=== PATIENT | male | born 1965 | race Caucasian/White ===

== ENCOUNTER → 2016-12-23 | Outpatient (CLI) | payer BC ==
[2016-12-23 08:29] LABS: Blood Urea Nitrogen 19 mg/dL (9-20); Non-African American GFR(MDRD) >60 (>60 ml/min/1.73 sqM)
--- NOTE | 2016-12-23 09:54 | CT ---
EXAMINATION TYPE: CT abdomen pelvis w con DATE OF EXAM: 12/23/2016 9:23 AM COMPARISON: 02/01/2016 HISTORY: 51-year-old male with RLQ pain. Patient with a history of rectal cancer. TECHNIQUE: Contiguous axial scanning of the abdomen and pelvis following administration of 100 ml Omn ipaque 300 IV contrast. Delayed images through the kidneys and coronal/sagittal reconstructions perf ormed. CT DLP: 1596.5 mGycm Automated exposure control for dose reduction was used. FINDINGS: Heart is normal size without pericardial effusion. Lung bases clear without pleural effusion. Small hiatal hernia. Stable 1.8 cm hypodense lesion left hepatic lobe with nodular peripheral enhancement along the superi or margin, likely hemangioma. There is some new hypodensity along the gallbladder fossa probably representing focal fat, axial imag e 27. This area measures up to 2 cm and remains relatively hypodense on delayed kidney images. Portal venous system is patent. No biliary ductal dilatation. Adrenal glands, left kidney, spleen with tiny posterior splenules, and pancreas show no gross abnorma l body. There is mild right-sided pelvicaliectasis and symmetric excretion of contrast by both kidneys regard less of a 6 mm calculus in the upper right ureter. There are a couple stable small omental fat-containing supraumbilical ventral abdominal wall hernias, axial image 44 and 48. Stranding within the subcutaneous fat of the right lower quadrant relating to scarring from the patie nt's previous ostomy. No dilated small bowel, free fluid, or free air. Normal appendix. A few prominent mesenteric lymph nodes measure up to 7 mm and are unchanged. Otherwise, no mesenteric or retroperitoneal lymphadenopathy. Oral contrast progressed to the hepatic flexure. There is moderate stool burden without pericolonic i nflammatory change. Bowel anastomotic staple line at the rectosigmoid junction additional surgical ma terial at the right lower quadrant. Bladder is urine distended. No abnormal fluid collection in the pelvis or pelvic lymphadenopathy seen . Bones: No osseous destructive process. IMPRESSION: 1. A 6 MM CALCULUS IN THE UPPER THIRD RIGHT URETER CAUSING MILD PELVICALIECTASIS BUT WITHOUT SIGNIFIC ANT URINARY OBSTRUCTION. 2. A NEW 2 CM AREA OF HYPODENSITY IN THE LIVER ALONG THE GALLBLADDER FOSSA SUSPECTED TO REPRESENT FOC AL FAT. A SHORT INTERVAL FOLLOW-UP IS RECOMMENDED GIVEN THE PATIENT'S HISTORY OF COLON CANCER. 3. A COUPLE STABLE SMALL SUPRAUMBILICAL VENTRAL ABDOMINAL WALL HERNIAS CONTAINING OMENTAL FAT.
== END | disposition home or self-care (01) ==
LOC: RADCTMAIN 07:35
PROVIDERS: ATTEND Surgery
DX: N20.1 Calculus of ureter (principal); K43.9 Ventral hernia without obstruction or gangrene
CPT/HCPCS: 82565; 84520; 74177; 36415; Q9967

== ENCOUNTER → 2016-12-28 | Outpatient (CLI) | payer BC ==
--- NOTE | 2016-12-28 15:37 | XR ---
EXAMINATION TYPE: XR KUB DATE OF EXAM: 12/28/2016 3:31 PM COMPARISON: CT 12/23/2016 HISTORY: Follow-up right-sided stone TECHNIQUE: One view abdominal series FINDINGS: Extensive retained fecal debris obscures the right renal outline. No suspicious calculi overlying the left kidney. Hypertrophic changes are seen with degenerative change of the spine. Adjacent to the L4-L5 disc space on the right there is a 5 mm calcification which could be in the cou rse of the right ureter. Arthropathy of the hips noted. Surgical clips and postsurgical changes noted. IMPRESSION: 1. There is a 5 to 6 mm right ureteral calculus which may have migrated a couple centimeters and now appears to be adjacent to the L4-5 disc interspace.
== END | disposition home or self-care (01) ==
LOC: RADXRMAIN 15:19
PROVIDERS: ATTEND Urology
DX: N20.1 Calculus of ureter (principal)
CPT/HCPCS: 74000

== ENCOUNTER 2017-01-16 10:03 | Day surgery (SDC) | payer BC ==
[2017-01-11 18:10] VITALS: BMI 32.5
[~2017-01-16 10:03] MED LIST: Pre Op ABX Message 1 EACH MISC MISCELLANE ONE
--- NOTE | 2017-01-16 10:18 | XR ---
Abdomen HISTORY: Prelithotripsy, ureteral calculus Frontal view of the abdomen on 2 images, Correlated prior exam one December 2016, CT 23 December 2016 The calculus seen on previous exam is not as well seen but is thought likely to be progressed somewha t within the ureter perhaps overlying the right sacrum. Retained fecal debris, bowel gas may obscure underlying detail. Lung bases are clear. Postop changes are again seen. IMPRESSION: Interval migration is suspected
[2017-01-16 12:16] VITALS: TEMP 97.8
[2017-01-16] MEDS ORDERED: LIDOCAINE 1% 20 ML VIAL (10MG/ML) FOR IV START INTRADERMA ONE (12:31)
[2017-01-16] MEDS ORDERED: LACTATED RINGERS 1,000 ML IV ONE (12:32)
[2017-01-16] MEDS ORDERED: PROPOFOL 10 MG/ML 20 ML VIAL IV ONE (12:37)
[2017-01-16] MEDS ORDERED: fentaNYL (PF) 50 MCG/ML 2 ML AMP ONE (12:37)
[2017-01-16] MEDS ORDERED: MIDAZOLAM 2 MG/2 ML VIAL ONE (12:37)
[2017-01-16] MEDS ORDERED: LIDOCAINE 1% INJ 10MG/ML (20 ML MDV) ONE (12:37)
[2017-01-16 12:48] LABS: Glucose,Whole Blood 190 mg/dL (75-99)
--- NOTE | 2017-01-16 13:08 | P.OP ---
Date of Procedure: 01/16/17 Preoperative Diagnosis: Right ureteral stone Postoperative Diagnosis: Same Procedure(s) Performed: ESWL right 2000 shocks at energy level Anesthesia: MAC Surgeon: Samy Reyes Pathology: none sent Condition: stable Disposition: PACU Indications for Procedure: The patient is a 51-year-old gentleman with a 5 mm distal ureteral stone and comes for shockwave Description of Procedure: Patient brought to the operating suite and given IV sedation on the table. The stone was seen in 2 views of fluoroscopy just distal to the SI joint. 2000 shocks at energy level administered to fracture the stone. Patient's awake and returned recovery room good condition. He'll be discharged home upon recovery.
[2017-01-16 13:28] LABS: Glucose,Whole Blood 161 mg/dL (75-99)
[2017-01-16] MEDS ORDERED: HYDROcodone/APAP 5-325MG 1 EACH TAB PO ONE (13:33)
[2017-01-16 13:41] VITALS: RESP 18
[2017-01-16 13:56] VITALS: BP 133/88; PULSE 84
== END 2017-01-16 14:10 | disposition home or self-care (01) ==
LOC: ORWHC2ENDO 10:03
PROVIDERS: ATTEND Urology
DX: N20.1 Calculus of ureter (principal); E11.9 Type 2 diabetes mellitus without complications; Z79.4 Long term (current) use of insulin; Z79.84 Long term (current) use of oral hypoglycemic drugs; I10 Essential (primary) hypertension; E78.5 Hyperlipidemia, unspecified; Z85.048 Personal history of other malignant neoplasm of rectum, rectosigmoid junction, and anus; Z79.891 Long term (current) use of opiate analgesic; Z79.899 Other long term (current) drug therapy; Z88.1 Allergy status to other antibiotic agents
CPT/HCPCS: 74000; 50590; J2250; J2001; J3010; J2704

== ENCOUNTER → 2017-01-18 | Outpatient (CLI) | payer BC ==
--- NOTE | 2017-01-19 11:42 | XR ---
Abdomen HISTORY: Status post lithotripsy Frontal view of the abdomen on 2 images correlated to prior dated December Postop changes are again seen. Calcifications within the pelvis not significantly changed in the inte rval. Overlying bowel gas may obscure detail. No obstruction or pneumoperitoneum. Previously identifi ed calcification is not as well seen but may persist over the right sacrum. IMPRESSION: Previously identified pelvic calcification is not as well seen but may be present over th e right sacrum as on prior.
== END ==
LOC: RADXRMAIN 15:54
PROVIDERS: ATTEND Urology
DX: N20.1 Calculus of ureter (principal)
CPT/HCPCS: 74000

== ENCOUNTER 2017-03-24 06:42 | Day surgery (SDC) | payer BC ==
[2017-03-22 09:35] VITALS: BMI 32.8
[~2017-03-24 06:42] MED LIST changes: +LACTATED RINGERS 1,000 ML IV SCH; -Pre Op ABX Message 1 EACH MISC MISCELLANE ONE
[2017-03-24 07:13] VITALS: TEMP 97.2
[2017-03-24 07:19] LABS: Glucose,Whole Blood 134 mg/dL (75-99)
[2017-03-24] MEDS ORDERED: PROPOFOL 10 MG/ML 20 ML VIAL IV ONE (07:54)
[2017-03-24] MEDS ORDERED: LIDOCAINE 1% INJ 10MG/ML (20 ML MDV) ONE (07:54)
--- NOTE | 2017-03-24 08:00 | P.GSHP ---
History of Present Illness H&P Date: 03/24/17 Chief Complaint: Rectal cancer Patient here today for follow-up colonoscopy. He has a personal history of rectal cancer. Recently has had some right lower quadrant abdominal pain but no bowel related complaints. He has a history of an incisional hernia repair following a ileostomy reversal. His initial diagnosis was in 2012 Past Medical History Past Medical History: Cancer, Diabetes Mellitus, Deep Vein Thrombosis (DVT), GI Bleed, Hyperlipidemia, Hypertension Additional Past Medical History / Comment(s): 06/10/15 ADM W/ Rectal Bleeding, 12 days Post Polypectomy. HX RECTAL CA W/ ILEOSTOMY, THEN REVERSAL 05/2014. SEVERE JOSE LEG DVT 02/2014. INCISIONAL HERNIA CURRENT. HX KIDNEY STONES, RT URETER History of Any Multi-Drug Resistant Organisms: None Reported Past Surgical History: Bowel Resection, Hernia Repair, Orthopedic Surgery Additional Past Surgical History / Comment(s): ILEOSTOMY 12/2013/REVERSED 2013. Thrombectomy W/ Clot EXC JOSE LEGS 02/2014; KIDNEY STONE SX. 10/31 RT GREAT TOE AMPUTATED 05/2014. EGD, COLONSCOPY, POLYPECTOMY 05/29/15,INCISIONAL HERNIA REPAIR Past Anesthesia/Blood Transfusion Reactions: No Reported Reaction Additional Past Anesthesia/Blood Transfusion Reaction / Comment(s): STATES REACTION TO PRE-OP SCRUB SOAP USED AT OTHER HOSPITAL, NO REACTION SINCE,NO HX BLOOD TRANSFUSION Past Psychological History: No Psychological Hx Reported Additional Psychological History / Comment(s): pt lives at home with his , is independant and works as merchandise flow team member for [employer]. Smoking Status: Former smoker Past Alcohol Use History: None Reported Additional Past Alcohol Use History / Comment(s): Smoked 32 years, < 1 PPD, Quit 10/2013 Past Drug Use History: None Reported - Past Family History Mother Family Medical History: Cancer Sister(s) Family Medical History: Cancer Medications and Allergies Home Medications Medication Instructions Recorded Confirmed Type INSULIN LISPRO (humaLOG) [humaLOG 1 - 3 units SQ AC-TID PRN 05/22/14 03/24/17 History (formulary)] Cholecalciferol [Vitamin D3] 2,000 unit PO DAILY 05/26/15 03/24/17 History Insulin Glargine [Lantus] 50 unit SQ HS 05/26/15 03/24/17 History Celecoxib [CeleBREX] 200 mg PO BID PRN 01/11/17 03/24/17 History Allergies Allergy/AdvReac Type Severity Reaction Status Date / Time rivaroxaban [From Xarelto] AdvReac GI BLEEDING Verified 03/22/17 09:24 SCENTS AdvReac RASH, Uncoded 03/22/17 09:24 SWELLING Surgical - Exam Vital Signs Temp Pulse Resp BP Pulse Ox 97.2 F L 86 20 152/90 98 03/24/17 07:12 03/24/17 07:12 03/24/17 07:12 03/24/17 07:12 03/24/17 07:12 Physical exam: General: Well-developed, well-nourished HEENT: Normocephalic, sclerae nonicteric Abdomen: Nontender, nondistended Extremities: No edema Neuro: Alert and oriented Results - Labs Abnormal Lab Results - Last 24 Hours (Table) 03/24/17 Range/Units 07:16 POC Glucose (mg/dL) 134 H (75-99) mg/dL Assessment and Plan (1) Rectal cancer Narrative/Plan: Will proceed with colonoscopy at this time risks of bleeding, infection, perforation were discussed. He understands and wishes to proceed. Status: Acute
--- NOTE | 2017-03-24 08:11 | P.PCN ---
Date of Procedure: 03/24/17 Preoperative Diagnosis: Postoperative Diagnosis: Procedure(s) Performed: PREOPERATIVE DIAGNOSIS: History of rectal cancer POSTOPERATIVE DIAGNOSIS: Normal exam PROCEDURE: Colonoscopy ANESTHESIA: MAC SURGEON: Narayan Mohr M.D. SPECIMENS: None ENDOSCOPIC PROCEDURE: The patient was placed on the endoscopy table in the left decubitus position. The Olympus colonoscope was inserted into the anus and passed under direct visualization to the base of the cecum. The appendiceal orifice was visualized. From that point the scope was slowly withdrawn inspecting all surfaces carefully. There were no neoplastic inflammatory or polypoid lesions throughout the cecum, ascending, transverse, descending and distal rectum. The anastomosis was patent. This was present at about 6-7 cm. There is no visible diverticulosis. Digital rectal examination was normal. The patient was taken to the recovery room in stable condition per anesthesia guidelines. RECOMMENDATIONS: Increase fiber. Follow-up colonoscopy in 3 years. Implants: Indications for Procedure: Operative Findings: Description of Procedure:
[2017-03-24 08:30] VITALS: BP 146/80; PULSE 76; RESP 16
[2017-03-24 08:30] LABS: Glucose,Whole Blood 133 mg/dL (75-99)
== END 2017-03-24 08:45 | disposition home or self-care (01) ==
LOC: ORWHC2ENDO 06:42
PROVIDERS: ATTEND Surgery
DX: R10.31 Right lower quadrant pain (principal); Z85.048 Personal history of other malignant neoplasm of rectum, rectosigmoid junction, and anus; Z98.0 Intestinal bypass and anastomosis status; E11.9 Type 2 diabetes mellitus without complications; Z79.4 Long term (current) use of insulin; Z79.84 Long term (current) use of oral hypoglycemic drugs; I10 Essential (primary) hypertension; Z87.891 Personal history of nicotine dependence; Z86.718 Personal history of other venous thrombosis and embolism; Z79.82 Long term (current) use of aspirin; Z79.899 Other long term (current) drug therapy; Z88.8 Allergy status to other drugs, medicaments and biological substances
CPT/HCPCS: 45378; J2001; J2704

== ENCOUNTER → 2018-04-02 | Outpatient (CLI) | payer BC ==
[2018-04-02 08:06] LABS: Blood Urea Nitrogen 22 mg/dL (9-20)
--- NOTE | 2018-04-02 09:44 | CT ---
EXAMINATION TYPE: CT ChestAbdPelvis w con DATE OF EXAM: 04/02/2018 COMPARISON: December 23, 2016 CT abdomen pelvis as well as CT chest abdomen pelvis 02/01/2016 HISTORY: Rectal cancer CT DLP: 2255 mGycm CONTRAST: CT scan of the chest, abdomen and pelvis is performed with Oral Contrast and with IV Contrast, patien t injected with 100 ml mL of Isovue 300. CT Chest: LUNGS: New nodular density right upper lobe anteriorly measuring 1.0 x 0.7 cm. No additional pulmonar y nodules identified. No evidence for infiltrate. No pleural effusion or volume loss. MEDIASTINUM: Thoracic aorta is of normal caliber. The heart is not enlarged. High right paratrache al lymph node measuring 1.1 cm unchanged from prior study. Additional subcentimeter mediastinal lymph nodes are stable. HILAR STRUCTURES: No evidence for mass. No hilar adenopathy is appreciated. OTHER: Subcentimeter axillary lymph nodes identified. CONTRAST CT ABDOMEN AND PELVIS FINDINGS: LIVER/GB: No calcified gallstones. Stable hypodense lesion measuring 1.9 cm left hepatic lobe later al segment. No additional hepatic lesions seen. Biliary tree is of normal caliber. PANCREAS: No inflammation. No distinct mass. SPLEEN: No splenic enlargement. No lesion seen. ADRENALS: Left adrenal nodule is stable at 1 cm. No thickening. KIDNEYS/BLADDER: No hydronephrosis. No nephrolithiasis. No disctinct renal mass. BOWEL: Postsurgical changes rectosigmoid region. Normal appendix. Normal bowel caliber. No inflamma tion. GENITAL ORGANS: No gross abnormality. LYMPH NODES: No greater than 1cm abdominal or pelvic lymph nodes are appreciated. AORTA: No significant abnormality. OSSEOUS STRUCTURES: No significant abnormality is seen. OTHER: No significant additional abnormality is seen. IMPRESSION: 1. New nodular density right upper lobe. Metastatic disease or primary neoplasm not excluded. Conside r PET CT evaluation. 2. Stable lesion within the left hepatic lobe lateral segment may reflect hemangioma versus focal fat . Lesion of other etiology is not excluded. Continued follow-up advised. 3. No evidence for local recurrence. Rectosigmoid postoperative changes seen.
== END | disposition home or self-care (01) ==
LOC: RADCTMAIN 07:24
PROVIDERS: ATTEND Internal Medicine Hematology & Oncology
DX: C20 Malignant neoplasm of rectum (principal); R91.1 Solitary pulmonary nodule; K76.9 Liver disease, unspecified
CPT/HCPCS: 82565; 84520; 71260; 74177; 36415; Q9967

== ENCOUNTER → 2018-08-10 | Outpatient (CLI) | payer BC ==
--- NOTE | 2018-08-10 10:20 | XR ---
EXAMINATION TYPE: XR shoulder complete LT DATE OF EXAM: 08/10/2018 COMPARISON: NONE HISTORY: Pain TECHNIQUE: Three views are submitted. FINDINGS: The osseous structures are intact. There is no acute fracture or dislocation. The AC joint is maint ained. IMPRESSION: 1. No acute process.
== END | disposition home or self-care (01) ==
LOC: RADXRMAIN 09:58
PROVIDERS: ATTEND Family Medicine
DX: M24.812 Other specific joint derangements of left shoulder, not elsewhere classified (principal)

== ENCOUNTER → 2018-08-27 | Outpatient (CLI) | payer BC ==
--- NOTE | 2018-08-27 10:54 | ECHOS ---
STRESS ECHOCARDIOGRAM INDICATIONS: Chest pain. MEDICATIONS: Humalog, Lantus, losartan, atorvastatin, glimepiride, aspirin, metformin. BASELINE HEART RATE: 86 BASELINE BLOOD PRESSURE: 157/69 MAXIMUM HEART RATE: 153 MAXIMUM BLOOD PRESSURE: 210/70 85% MPHR: 142 100% MPHR: 167 METS: 6.4 MAXIMUM STAGE REACHED: 2 TOTAL EXERCISE TIME: 4:30 CLINICAL INFORMATION: Baseline EKG shows sinus rhythm, normal axis, normal intervals. Patient exercised on Johny protocol for a total of 4.5 minutes achieving 6 METs, 91% of predicted maximal heart rate without chest pain or diagnostic ST-segment depression. Baseline echo shows normal left ventricular size, hypokinesis involving basal inferior wall with normal LV function with an ejection fraction of 50%. Postexercise there is normal hyperdynamic response involving the anterior wall, septum and the lateral wall. Basal inferior wall remains hypokinetic. CONCLUSION: 1. Poor exercise tolerance. 2. Negative stress test by EKG criteria. 3. Abnormal stress echo showing evidence of prior inferior wall myocardial infarction with preserved LV function without any ischemia. MMODL / IJN: [id number] /
== END | disposition home or self-care (01) ==
LOC: RADNMMAIN 08:54
PROVIDERS: ATTEND Family Medicine
DX: I25.2 Old myocardial infarction (principal); I10 Essential (primary) hypertension
CPT/HCPCS: 93306; 93351

== ENCOUNTER → 2018-09-04 | Outpatient (CLI) | payer BC | END | disposition home or self-care (01) | LOC: RADMRIMAIN 07:04 | PROVIDERS: ATTEND Family Medicine | DX: Z53.9 Procedure and treatment not carried out, unspecified reason (principal) ==

== ENCOUNTER → 2018-10-01 | Outpatient (CLI) | payer BC ==
[2018-10-01 08:16] LABS: Blood Urea Nitrogen 18 mg/dL (9-20)
--- NOTE | 2018-10-01 10:09 | CT ---
EXAMINATION TYPE: CT ChestAbdPelvis w con DATE OF EXAM: 10/01/2018 COMPARISON: 04/02/2018 HISTORY: Rectal cancer, Lung nodule CT DLP: 2074 mGycm Automated exposure control for dose reduction was used. CONTRAST: CT scan of the chest, abdomen and pelvis is performed with Oral Contrast and with IV Contrast, patien t injected with 100 ml mL of Isovue 300. FINDINGS: LUNGS: nodular density right upper lobe anteriorly measuring 1.0 x 0.7 cm On previous exam now measur es 0.6 x 0.4 cm No additional pulmonary nodules identified. No evidence for infiltrate. No pleural ef fusion or volume loss. MEDIASTINUM: Thoracic aorta is of normal caliber. The heart is not enlarged. High right paratracheal lymph node measuring 1.1 cm unchanged from prior study. Additional subcentimeter mediastinal lymph no jorden are stable. OTHER: No additional significant abnormality is seen. LIVER/GB: No calcified gallstones. Stable hypodense lesion measuring 1.9 cm left hepatic lobe lateral segment. No additional hepatic lesions seen. Biliary tree is of normal caliber. PANCREAS: No significant abnormality is seen. SPLEEN: No significant abnormality is seen. ADRENALS: Left adrenal nodule is stable at 1 cm. KIDNEYS: No significant abnormality is seen. BOWEL: Postsurgical changes rectosigmoid region. Normal appendix. Normal bowel caliber. LYMPH NODES: No greater than 1 cm abdominal or pelvic lymph nodes are appreciated. OSSEOUS STRUCTURES: No significant abnormality is seen. OTHER: Aorta of normal caliber. Fat-containing anterior abdominal wall hernia noted. Hypertrophic and degenerative changes of the spine. IMPRESSION: 1. Interval reduction in size of the nodular density right upper lobe as measured above. Metastatic disease or primary neoplasm not excluded. 2. Stable lesion within the left hepatic lobe lateral segment is nonspecific but suggestive of a shahid ngioma. Findings stable dating back to 2014 and therefore likely benign. 3. No evidence for local recurrence. Rectosigmoid postoperative changes seen.
== END | disposition home or self-care (01) ==
LOC: RADCTMAIN 07:29
PROVIDERS: ATTEND Internal Medicine Hematology & Oncology
DX: C20 Malignant neoplasm of rectum (principal); K76.9 Liver disease, unspecified; J98.4 Other disorders of lung; Z98.890 Other specified postprocedural states
CPT/HCPCS: 82565; 84520; 71260; 74177; 36415; Q9967

== ENCOUNTER → 2019-02-08 | Outpatient (CLI) | payer BC ==
[2019-02-08 16:32] LABS: HCT 39.2 % (39.0-53.0); HGB 12.7 gm/dL (13.0-17.5); MCH 28.5 pg (25.0-35.0); MCHC 32.5 g/dL (31.0-37.0); MCV 87.7 fL (80.0-100.0); Mean Platelet Volume 9.8; Platelet Count 274 k/uL (150-450); RBC 4.47 m/uL (4.30-5.90)
[2019-02-08 22:28] LABS: Anion Gap 7.4 mmol/L (4.00-12.00); Carbon Dioxide 26.6 mmol/L (21.6-31.8); Potassium 4.2 mmol/L (3.5-5.5)
== END ==
LOC: LABWHC1 15:11
PROVIDERS: ATTEND Internal Medicine Interventional Cardiology
DX: Z01.812 Encounter for preprocedural laboratory examination (principal); E11.9 Type 2 diabetes mellitus without complications; E78.2 Mixed hyperlipidemia; R07.2 Precordial pain
CPT/HCPCS: 36415; 80051; 82565; 84520; 85027

== ENCOUNTER 2019-02-12 07:27 | Day surgery (SDC) | payer BC ==
[2019-02-08 17:55] VITALS: BMI 34.0
[~2019-02-12 07:27] MED LIST changes: +ALPRAZolam 0.25 MG TAB PO PRN; +ALPRAZolam 0.5 MG TAB PO PRN; +ASPIRIN 325 MG TAB PO ONE; +ATORVASTATIN 80 MG TAB PO ONE; -LACTATED RINGERS 1,000 ML IV SCH; +NITROGLYCERIN SL TABS 0.4 MG TAB SUBLINGUAL PRN; +SODIUM CHLORIDE 0.9% 1,000 ML in EMPTY BAG 1 BAG IV ONE
[2019-02-12 07:59] LABS: Glucose,Whole Blood 253 mg/dL (75-99)
[2019-02-12] MEDS ORDERED: SODIUM CHLORIDE 0.9% 1,000 ML IV ONE (08:08)
[2019-02-12] MEDS ORDERED: INSULIN ASPART (NovoLOG) 100 UNIT/ML VIAL SQ ONE (08:09)
[2019-02-12] MEDS ORDERED: LIDOCAINE 1% INJ 10MG/ML (20 ML MDV) ONE (08:43)
[2019-02-12] MEDS ORDERED: VERAPAMIL 2.5 MG/ML 2 ML AMP ONE (08:45)
[2019-02-12] MEDS ORDERED: MIDAZOLAM 2 MG/2 ML VIAL IV ONE (08:58)
[2019-02-12] MEDS ORDERED: fentaNYL (PF) 50 MCG/ML 2 ML AMP ONE (09:00)
[2019-02-12] MEDS ORDERED: HEPARIN SODIUM 1,000 UN/ML (10ML VL) ONE ×2 (09:00→09:25)
[2019-02-12] MEDS: fentaNYL (PF) 50 MCG/ML 2 ML AMP IV ONE ×2 (09:04→09:21)
[2019-02-12] MEDS ORDERED: LIDOCAINE 1% INJ 10MG/ML (20 ML MDV) SQ ONE (09:05)
[2019-02-12] MEDS ORDERED: VERAPAMIL SYRINGE (5 MG/10 ML) INTRAARTER ONE (09:06)
[2019-02-12] MEDS: MIDAZOLAM 2 MG/2 ML VIAL IV ONE ×2 (09:11→09:44)
[2019-02-12] MEDS ORDERED: CLOPIDOGREL 75 MG TAB ONE (09:19)
[2019-02-12] MEDS ORDERED: CLOPIDOGREL 75 MG TAB PO ONE (09:22)
[2019-02-12] MEDS: NITROGLYCERIN 1000MCG/10ML SYRINGE INTRACORON ONE ×3 (09:34→09:45)
[2019-02-12] MEDS ORDERED: IOPAMIDOL-370 100ML BTL INJ ONE ×2 (10:01→10:03)
[2019-02-12] MEDS ORDERED: MELOXICAM 7.5 MG TAB PO PRN (10:06)
[2019-02-12] MEDS ORDERED: NITROGLYCERIN SL TABS 0.4 MG TAB SUBLINGUAL PRN (10:07)
[2019-02-12] MEDS ORDERED: ATROPINE SULFATE 0.1 MG/ML 10ML SYRINGE IV PRN (10:07)
[2019-02-12] MEDS ORDERED: RX INFO: IV CONTRAST WAS GIVEN 1 EACH MISC MISCELLANE PRN (10:07)
[2019-02-12] MEDS ORDERED: ZOLPIDEM 5 MG TAB PO PRN (10:07)
[2019-02-12] MEDS ORDERED: MAG HYDROX/AL HYDROX/SIMETH 30 ML CUP PO PRN (10:07)
[2019-02-12] MEDS ORDERED: SODIUM CHLORIDE 0.9% 1,000 ML IV SCH (10:15)
--- NOTE | 2019-02-12 10:54 | CC ---
CARDIAC CATHETERIZATION REPORT CARDIAC CATHETERIZATION AND PERCUTANEOUS CORONARY INTERVENTION DATE OF SERVICE: February 12, 2019 PERFORMING PHYSICIAN: Moises Solis MD, creel clerk. PROCEDURE PERFORMED: 1. Selective right and left coronary angiogram. 2. Successful stenting of the mid RCA using 4.0 x 15 and 3.5 x 8 mm stent with an excellent angiographic results. 3. Successful stenting of the proximal RCA using 3.0 x 18 mm Xience drug-eluting stent with excellent angiographic results. INDICATION: This is a 53-year-old gentleman who sees Dr. Clemens in the office as an outpatient with history of peripheral arterial disease, diabetes, hypertension, and dyslipidemia, who was experiencing symptoms of chest discomfort concerning for angina. He underwent a heart catheterization from right radial approach was advised by Dr. Clemens. COMPLICATION: None. LEVEL OF SEDATION: Moderate with sedation length of 1 hour and 17 minutes. PROCEDURE DESCRIPTION: After obtaining an informed consent, the patient was brought to cardiac prestressed concrete laborer. The right radial artery was cannulated using micropuncture technique, the micropuncture wire passed easily then I placed a 6-Namibian sheath 11 cm in the right radial artery. I gave the patient 2 mg of verapamil IA and 10,000 units of heparin IV. I did selective right and left coronary angiogram using JR4 and JL3.5 catheters. Subsequently I did left heart catheterization using the JR4 catheter which flipped into the LV then I did pullback across the aortic valve. Subsequently I did intervene on the RCA, please see a separate paragraph for that. SELECTIVE CORONARY ANGIOGRAM: 1. The right coronary artery is a large caliber vessel. It is a dominant vessel. The proximal RCA appeared to have mild disease only. The mid RCA has a tight lesion focal appeared to be in the range of 70%. The RCA distally appeared to have mild disease only and bifurcates into PDA and PLV branches both appeared to be angiographically normal. 2. The left main is angiographically normal. It bifurcates into left circumflex and left anterior descending artery. 3. The left circumflex has mild disease only in the midportion and gives rise into the first and second obtuse marginal branches both appear to have mild disease only. 4. The LAD: The proximal LAD appeared to be normal. The mid LAD appeared to be normal as well and the LAD in the mid to distal portion has a lesion appeared to be in the range of 80% to 90%. HEMODYNAMICS: The left ventricular end-diastolic pressure was 20 mmHg without significant gradient across the aortic valve. PCI OF THE RCA: Anticoagulation was initiated using heparin and I gave the patient additional 6000 units of heparin throughout the procedure with continuous ACT monitoring during the procedure. After that I did engage the right using JR4 guide. A run-through wire was used to wire the right coronary artery. Subsequently I did direct stenting on the lesion using 4.0 x 18 mm Xience drug-eluting stent where the stent was positioned under fluoroscopy guidance and deployed under 12 atmospheres for 20 seconds. I post dilated the stent using 3.75 mm NC balloon. The following angiogram showed each dissection in the proximal portion of the stent, which I tried to cover using 8 mm stent but the stent move forward and deployed inside the previous stent and then I deployed another stent, which was a 3.0 x 18 mm Xience drug-eluting stent which was positioned under fluoroscopy guidance and deployed under its nominal pressure. The following angiogram showed good angiographic results and the procedure was completed without any complication. POSTPROCEDURE MANAGEMENT: 1. Dual antiplatelet therapy. 2. Risk factor modifications. 3. Follow up with the patient. MMODL / IJN: [id number] /
[2019-02-12 11:23] LABS: Glucose,Whole Blood 212 mg/dL (75-99)
[2019-02-12 11:40] VITALS: RESP 18
[2019-02-12] MEDS ORDERED: amLODIPine 5 MG TAB PO STA (14:29)
[2019-02-12] MEDS ORDERED: HYDROmorphone 0.5 MG/0.5 ML SYRINGE IVP STA (15:05)
[2019-02-12 16:41] LABS: Glucose,Whole Blood 325 mg/dL (75-99)
[2019-02-12] MEDS ORDERED: MORPHINE SULFATE 2 MG/ML SYRINGE IVP STA (17:53)
[2019-02-12 20:52] LABS: Glucose,Whole Blood 326 mg/dL (75-99)
[2019-02-12] MEDS ORDERED: INSULIN DETEMIR (LEVEMIR) 100 UNIT/ML SYR SQ SCH (21:00)
[2019-02-12] MEDS: ASPIRIN 81 MG PO SCH (21:20)
[2019-02-13 06:08] LABS: Glucose,Whole Blood 144 mg/dL (75-99)
[2019-02-13 07:18] LABS: Anion Gap 7 mmol/L; Blood Urea Nitrogen 17 mg/dL (9-20); Carbon Dioxide 25 mmol/L (22-30); Chloride 105 mmol/L (98-107); Glucose 138 mg/dL (74-99); Potassium 3.9 mmol/L (3.5-5.1); Sodium 137 mmol/L (137-145)
[2019-02-13 07:22] LABS: Basophils % (A) 0 %; Eosinophils # (A) 0.3 k/uL (0-0.7); Eosinophils % (A) 3 %; HCT 36.8 % (39.0-53.0); HGB 12.5 gm/dL (13.0-17.5); Lymphocytes # (A) 1.3 k/uL (1.0-4.8); Lymphocytes % (A) 11 %; MCH 29.2 pg (25.0-35.0); MCHC 33.9 g/dL (31.0-37.0); MCV 86.2 fL (80.0-100.0); Mean Platelet Volume 9.5; Monocytes # (A) 0.6 k/uL (0-1.0); Monocytes % (A) 5 %; Neutrophils % (A) 79 %; Platelet Count 256 k/uL (150-450); RBC 4.26 m/uL (4.30-5.90); RDW 14.1 % (11.5-15.5); WBC 11.4 k/uL (3.8-10.6)
[2019-02-13] MEDS ORDERED: INSULIN ASPART (NovoLOG) 100 UNIT/ML VIAL SQ SCH (07:30)
[2019-02-13] MEDS ORDERED: glipiZIDE 10 MG TAB PO SCH (07:30)
[2019-02-13] MEDS: ASPIRIN 81 MG PO SCH (08:01)
[2019-02-13 08:49] VITALS: BP 150/79; PULSE 97; TEMP 97
[2019-02-13] MEDS ORDERED: ATORVASTATIN 40 MG TAB PO SCH (09:00)
[2019-02-13] MEDS ORDERED: NON-FORMULARY DRUG (Fish Oil/Dha/Epa [Fish Oil 1,200 Mg Fish Oil] 1,200 MG) PO SCH (09:00)
[2019-02-13] MEDS ORDERED: CLOPIDOGREL 75 MG TAB PO SCH (09:00)
[2019-02-13] MEDS ORDERED: METOPROLOL TARTRATE 25 MG TAB PO SCH ×2 (09:00)
[2019-02-13] MEDS ORDERED: LOSARTAN 50 MG TAB PO SCH (09:00)
[2019-02-13] MEDS ORDERED: CHOLECALCIFEROL 1,000 UNIT TAB PO SCH (12:00)
--- NOTE | 2019-02-13 12:16 | DS ---
DISCHARGE SUMMARY DATE OF ADMISSION: 02/12/2019 DISCHARGE DATE: 02/13/2019 BRIEF HISTORY: This is a 53-year-old gentleman who was admitted to the hospital yesterday, who sees Dr. Brittney Clemens as an outpatient and underwent successful stenting of the right coronary artery with good angiographic results and without any complication. On follow up with him today, he is doing good. The right radial site is slightly tender with small hematoma. The patient is going to be discharged home on dual anti- platelet therapy and Dr. Clemens will follow up with the patient in a week. MMRITAL / IJN: [id number] /
== END 2019-02-13 09:34 | disposition home or self-care (01) ==
LOC: CATHCVL 07:27 → 3SCARD 10:07 → CATHCVL 02-13 09:34
PROVIDERS: ATTEND Internal Medicine Interventional Cardiology
DX: I25.110 Atherosclerotic heart disease of native coronary artery with unstable angina pectoris (principal); E78.2 Mixed hyperlipidemia; E78.00 Pure hypercholesterolemia, unspecified; I10 Essential (primary) hypertension; E11.9 Type 2 diabetes mellitus without complications; Z79.82 Long term (current) use of aspirin; Z79.4 Long term (current) use of insulin; Z79.899 Other long term (current) drug therapy
CPT/HCPCS: 93454; 85347; 80048; 85025; C9600; C1887; C1725; C1769 ×2; C1874; C1894; J2250; J2001; J3010; J2270; J1644; J1170; Q9967

== ENCOUNTER → 2019-04-08 | Outpatient (CLI) | payer BC ==
[2019-04-08 08:02] LABS: African American GFR (CKD) >90 (>60 ml/min/1.73 sqM); Blood Urea Nitrogen 19 mg/dL (9-20)
--- NOTE | 2019-04-08 09:47 | CT ---
EXAMINATION TYPE: CT chest w con DATE OF EXAM: 04/08/2019 COMPARISON: 12/02/2017, 04/02/2018, 02/01/2016 HISTORY: 53-year-old male history of Rectal cancer; Lung nodules TECHNIQUE: Contiguous axial scanning of the chest after the administration of 100 ml mL of Isovue 300 . Coronal/sagittal reconstructions performed. CT DLP: 712mGycm. Automatic exposure control utilized for a dose reduction. FINDINGS: Heart normal size without pericardial effusion. Coronary vessel calcifications are present. Aorta normal caliber with mild atherosclerotic arch calcifications. Scattered nonenlarged mediastinal lymph nodes measure up to 7 mm in the lower right paratracheal felicia on. The previously questioned area along the anterior right upper lobe, axial image 16 is now characteriz ed as branching endobronchial thickening. Continued follow-up recommended. The overall appearance is not nodular as seen on patient's 04/02/2018 exam but is more pronounced from 10/01/2018. Minimal underlying emphysematous change. Strandy scarring or atelectasis at the inferior lingula. No consolidation or pleural effusion. Tiny hiatal hernia. Redemonstrated 1.8 cm hemangioma within the left liver lobe with peripheral nodular enhancement. A 1.5 cm nodule within the left adrenal gland seems to be slightly larger from 1.3 cm on 04/02/2018. Bones: Bridging anterior endplate spondylosis lower thoracic spine suggesting dish. IMPRESSION: 1. Questioned abnormality anterior right upper lobe now has the appearance of branching endobronchial thickening. This could represent inflammatory mucoid impaction or an endobronchial lesion. It is les s nodular in appearance as compared to 04/02/2018 but is more pronounced from 10/01/2018. Continued clos e follow-up is recommended. 2. 1.5 cm left adrenal nodule, slightly larger from 04/02/2018 where it measured 1.3 cm. Attention on f ollow-up.
== END ==
LOC: RADCTMAIN 07:26
PROVIDERS: ATTEND Internal Medicine Hematology & Oncology
DX: C20 Malignant neoplasm of rectum (principal); R91.8 Other nonspecific abnormal finding of lung field
CPT/HCPCS: 82565; 84520; 71260; 36415; Q9967

== ENCOUNTER → 2020-04-10 | Outpatient (CLI) | payer BC ==
--- NOTE | 2020-04-10 16:06 | XR ---
Bilateral hips HISTORY: Osteoarthritis 2 views of each hip are submitted. Surgical clips are present in the right inguinal region. Suture material present within the pelvis. T here is overlying artifact. Bone mineralization, joint spaces and alignment are maintained. No fractu re or dislocation. Calcifications are present lateral to the greater trochanters. IMPRESSION: Correlate for possible calcific tendinitis. Postop changes. Hip MRI may be of benefit.
--- NOTE | 2020-04-10 16:07 | XR ---
Left shoulder HISTORY: Pain in left shoulder x1 year, osteoarthritis 3 views of the left shoulder, correlation to prior left shoulder 08/10/2018 Bone mineralization, joint spaces and alignment are maintained. Left lung apex as visualized is chantal l. Acromioclavicular joint shows a stable appearance. IMPRESSION: Stable exam, no acute abnormality.
== END | disposition home or self-care (01) ==
LOC: RADXRMAIN 14:46
PROVIDERS: ATTEND Family Medicine
DX: M24.812 Other specific joint derangements of left shoulder, not elsewhere classified (principal); M16.9 Osteoarthritis of hip, unspecified; Z98.890 Other specified postprocedural states
CPT/HCPCS: 73521

== ENCOUNTER → 2020-05-15 | Outpatient (CLI) | payer BC ==
--- NOTE | 2020-05-15 23:24 | MR ---
EXAMINATION TYPE: MR hips BILAT wo con DATE OF EXAM: 05/15/2020 COMPARISON: None HISTORY: Osteoarthritis of Hip, Bilateral Hip Pain for 3-4 years Multiplanar multiecho imaging of the pelvis and both hips was performed without contrast. FINDINGS: Proximal femurs are intact. Hip joint spaces are fairly well-maintained. There is no evidence of any significant hip joint effusion. Sacroiliac joints are intact. There is no evidence of a pelvic mass. There is no free fluid in the pelvis. Bladder distends smoothly. There is no sign of hip dysplasia. IMPRESSION: Negative bilateral MR scan of the hip joints. No evidence of any significant arthritic disease. No ev idence of avascular necrosis. No fracture.
== END | disposition home or self-care (01) ==
LOC: RADMRIMAIN 10:38
PROVIDERS: ATTEND Family Medicine
DX: M16.9 Osteoarthritis of hip, unspecified (principal)

== ENCOUNTER 2020-06-09 07:00 | Day surgery (SDC) | payer BC ==
[2020-06-04 13:28] VITALS: BMI 32.4
[~2020-06-09 07:00] MED LIST changes: -ALPRAZolam 0.25 MG TAB PO PRN; -ALPRAZolam 0.5 MG TAB PO PRN; -ASPIRIN 325 MG TAB PO ONE; -ATORVASTATIN 80 MG TAB PO ONE; +LIDOCAINE 1% (10MG/ML) FOR IV START INTRADERMA PRN; -NITROGLYCERIN SL TABS 0.4 MG TAB SUBLINGUAL PRN; -SODIUM CHLORIDE 0.9% 1,000 ML in EMPTY BAG 1 BAG IV ONE
[2020-06-09 07:33] VITALS: TEMP 97.5
[2020-06-09] MEDS: LACTATED RINGERS 1,000 ML IV SCH ×2 (07:45→07:47)
[2020-06-09 07:48] LABS: Glucose,Whole Blood 106 mg/dL (75-99)
[2020-06-09] MEDS ORDERED: PROPOFOL 10 MG/ML 20 ML VIAL IV ONE (07:59)
--- NOTE | 2020-06-09 08:03 | P.GSHP ---
History of Present Illness H&P Date: 06/09/20 Chief Complaint: Rectal cancer Patient here today for colonoscopy. Last colonoscopy 3 years ago. Patient with history of rectal cancer. Patient underwent low anterior resection approximately 4-5 years ago. Past Medical History Past Medical History: Cancer, Diabetes Mellitus, Deep Vein Thrombosis (DVT), GI Bleed, Hyperlipidemia, Hypertension Additional Past Medical History / Comment(s): HX RECTAL CA W/ ILEOSTOMY, THEN REVERSAL 05/2014. SEVERE JOSE LEG DVT 02/2014. INCISIONAL HERNIA . HX KIDNEY STONES, RT URETER History of Any Multi-Drug Resistant Organisms: None Reported Past Surgical History: Bowel Resection, Heart Catheterization With Stent, Hernia Repair, Orthopedic Surgery Additional Past Surgical History / Comment(s): ILEOSTOMY 12/2013/REVERSED 05/2014. Thrombectomy W/ Clot EXC JOSE LEGS 02/2014; KIDNEY STONE SX. 10/31 RT GREAT TOE AMPUTATED 05/2014. EGD, COLONSCOPY, POLYPECTOMY 05/29/15,INCISIONAL HERNIA REPAIR, 3 heart stents Past Anesthesia/Blood Transfusion Reactions: No Reported Reaction Additional Past Anesthesia/Blood Transfusion Reaction / Comment(s): STATES RE ACTION TO PRE-OP SCRUB SOAP USED AT OTHER HOSPITAL, NO REACTION SINCE,NO HX BLOOD TRANSFUSION Date of Last Stent Placement:: 01/2019 Smoking Status: Former smoker - Past Family History Mother Family Medical History: Cancer Sister(s) Family Medical History: Cancer Medications and Allergies Home Medications Medication Instructions Recorded Confirmed Type Cholecalciferol [Vitamin D3 (25 2,000 unit PO DAILY 05/26/15 06/04/20 History Mcg = 1000 Iu)] Insulin Glargine [Lantus] 70 unit SQ HS 05/26/15 06/04/20 History Celecoxib [CeleBREX] 200 mg PO BID PRN 01/11/17 06/04/20 History Atorvastatin [Lipitor] 80 mg PO DAILY 02/08/19 06/04/20 History Fish Oil/Dha/Epa [Fish Oil 1,200 1,200 mg PO DAILY 02/08/19 06/04/20 History mg Fish Oil] Losartan Potassium [Cozaar] 100 mg PO DAILY 02/08/19 06/04/20 History Clopidogrel [Plavix] 75 mg PO DAILY #30 tab 02/13/19 06/04/20 Rx Metoprolol Tartrate [Lopressor] 25 mg PO BID #60 tab 02/13/19 06/04/20 Rx Aspirin EC [Ecotrin Low Dose] 81 mg PO DAILY 06/04/20 06/04/20 History Empagliflozin [Jardiance] 25 mg PO DAILY 06/04/20 06/04/20 History INSULIN LISPRO (humaLOG) [humaLOG] 0 units SQ ACHS PRN 06/04/20 06/04/20 History metFORMIN HCL 1,000 mg PO DAILY 06/04/20 06/04/20 History Allergies Allergy/AdvReac Type Severity Reaction Status Date / Time perfume Allergy Swelling, Verified 06/09/20 07:27 RASH rivaroxaban [From Xarelto] AdvReac GI BLEEDING Verified 06/09/20 07:27 DYES Allergy Swelling, Uncoded 06/09/20 07:27 RASH SCENTS AdvReac RASH, Uncoded 06/09/20 07:27 SWELLING Surgical - Exam Vital Signs Temp Pulse Resp BP Pulse Ox 97.5 F L 78 16 140/73 97 06/09/20 07:32 06/09/20 07:32 06/09/20 07:32 06/09/20 07:32 06/09/20 07:32 Physical exam: General: Well-developed, well-nourished HEENT: Normocephalic, sclerae nonicteric Abdomen: Nontender, nondistended Extremities: No edema Neuro: Alert and oriented Results - Labs Abnormal Lab Results - Last 24 Hours (Table) 06/09/20 Range/Units 07:47 POC Glucose (mg/dL) 106 H (75-99) mg/dL Assessment and Plan (1) Rectal cancer Narrative/Plan: Will proceed with colonoscopy at this time Current Visit: No Status: Acute Code(s): C20 - MALIGNANT NEOPLASM OF RECTUM SNOMED Code(s): 538960705
--- NOTE | 2020-06-09 08:15 | P.PCN ---
Date of Procedure: 06/09/20 Procedure(s) Performed: PREOPERATIVE DIAGNOSIS: Colon cancer screening, history of rectal cancer POSTOPERATIVE DIAGNOSIS: Normal exam, slightly suboptimal prep PROCEDURE: Colonoscopy ANESTHESIA: MAC SURGEON: Narayan Mohr M.D. SPECIMENS: None ENDOSCOPIC PROCEDURE: The patient was placed on the endoscopy table in the left decubitus position. The Olympus colonoscope was inserted into the anus and passed under direct visualization to the base of the cecum. The appendiceal orifice was visualized. From that point the scope was slowly withdrawn inspecting all surfaces carefully. There were no neoplastic inflammatory or polypoid lesions throughout the cecum, ascending, transverse, descending, and d istal rectum. There was no visible wire diverticulosis noted. Digital rectal examination was normal. The patient was taken to the recovery room in stable condition per anesthesia guidelines. RECOMMENDATIONS: Resume diet. Follow-up colonoscopy advised 3 years.
[2020-06-09 08:42] VITALS: BP 130/78; PULSE 72; RESP 20
== END 2020-06-09 08:59 | disposition home or self-care (01) ==
LOC: ORWHC2ENDO 07:00
PROVIDERS: ATTEND Surgery
DX: Z08 Encounter for follow-up examination after completed treatment for malignant neoplasm (principal); Z85.048 Personal history of other malignant neoplasm of rectum, rectosigmoid junction, and anus; I10 Essential (primary) hypertension; I25.10 Atherosclerotic heart disease of native coronary artery without angina pectoris; E11.9 Type 2 diabetes mellitus without complications; E78.5 Hyperlipidemia, unspecified; Z87.891 Personal history of nicotine dependence; Z79.4 Long term (current) use of insulin; Z79.1 Long term (current) use of non-steroidal anti-inflammatories (NSAID); Z79.02 Long term (current) use of antithrombotics/antiplatelets; Z79.82 Long term (current) use of aspirin; Z79.899 Other long term (current) drug therapy; Z88.8 Allergy status to other drugs, medicaments and biological substances; Z91.041 Radiographic dye allergy status; Z91.09 Other allergy status, other than to drugs and biological substances; Z86.718 Personal history of other venous thrombosis and embolism; Z87.442 Personal history of urinary calculi; Z95.5 Presence of coronary angioplasty implant and graft; Z98.890 Other specified postprocedural states; Z80.9 Family history of malignant neoplasm, unspecified
CPT/HCPCS: 45378; J2704

== ENCOUNTER → 2021-09-03 | Outpatient (CLI) | payer BC ==
[2021-09-03 17:55] LABS: African American GFR (CKD) 95.9 (60.0-200.0); Albumin 4.3 g/dL (3.8-4.9); Albumin/Globulin Ratio 1.96 (1.60-3.17); Anion Gap 12.9 mmol/L (4.00-12.00); BUN/Creat Ratio 20.79 Ratio (12.00-20.00); Calcium 9.7 mg/dL (8.7-10.3); Carbon Dioxide 24.3 mmol/L (21.6-31.8); Chol/HDL Ratio 4.43 Ratio; Globulin 2.2 g/dL (1.6-3.3); HDL Cholesterol 31.6 mg/dL (40.00-60.00); Non-African American GFR(CKD) 82.8 (60.0-200.0); Potassium 4.7 mmol/L (3.5-5.5); Total Bilirubin 0.7 mg/dL (0.30-1.20); Total Protein 6.6 g/dL (6.2-8.2); VLDL Calculation 31.4 mg/dL (5.00-40.00)
== END | disposition home or self-care (01) ==
LOC: LABWHC1 10:46
PROVIDERS: ATTEND Nurse Practitioner Adult Health
DX: I10 Essential (primary) hypertension (principal); E78.2 Mixed hyperlipidemia
CPT/HCPCS: 36415; 80053; 80061

== ENCOUNTER 2021-09-07 07:20 | Day surgery (SDC) | payer BC ==
[~2021-09-07 07:20] MED LIST changes: +ALPRAZolam 0.25 MG TAB PO PRN; +ALPRAZolam 0.5 MG TAB PO PRN; +ASPIRIN 325 MG TAB PO STA; +ATORVASTATIN 80 MG TAB PO STA; +HEPARIN SODIUM,PORCINE 10,000 UNIT in SODIUM CHLORIDE 0.9% 1,000 ML IRRIGATION PRN; +HEPARIN SODIUM,PORCINE 2,500 UNIT in SODIUM CHLORIDE 0.9% 250 ML IRRIGATION PRN; -LIDOCAINE 1% (10MG/ML) FOR IV START INTRADERMA PRN; +NITROGLYCERIN SL TABS 0.4 MG TAB SUBLINGUAL PRN; +SODIUM CHLORIDE 0.9% 1,000 ML in EMPTY BAG 1 BAG IV SCH
[2021-09-07 07:59] LABS: Glucose,Whole Blood 170 mg/dL (75-99)
[2021-09-07 08:07] VITALS: RESP 18; TEMP 98.1
[2021-09-07 08:23] LABS: Basophils # (A) 0.1 k/uL (0-0.2); Basophils % (A) 1 %; Eosinophils # (A) 0.3 k/uL (0-0.7); Eosinophils % (A) 2 %; HCT 49.5 % (39.0-53.0); HGB 16.4 gm/dL (13.0-17.5); Lymphocytes # (A) 2.2 k/uL (1.0-4.8); Lymphocytes % (A) 16 %; MCH 29.6 pg (25.0-35.0); MCHC 33.2 g/dL (31.0-37.0); MCV 89.3 fL (80.0-100.0); Mean Platelet Volume 10.3; Monocytes % (A) 7 %; Neutrophils % (A) 72 %; Platelet Count 272 k/uL (150-450); RBC 5.54 m/uL (4.30-5.90); RDW 13.3 % (11.5-15.5); WBC 13.9 k/uL (3.8-10.6)
[2021-09-07] MEDS ORDERED: LIDOCAINE 1% INJ 10MG/ML (20 ML MDV) ONE (08:52)
[2021-09-07] MEDS ORDERED: VERAPAMIL 2.5 MG/ML 2 ML AMP ONE (08:52)
[2021-09-07] MEDS ORDERED: HEPARIN SODIUM 1,000 UN/ML (10ML VL) ONE (08:53)
[2021-09-07] MEDS ORDERED: fentaNYL (PF) 50 MCG/ML 2 ML AMP ONE (08:53)
[2021-09-07] MEDS ORDERED: fentaNYL (PF) 50 MCG/ML 2 ML AMP IV ONE (09:29)
[2021-09-07] MEDS ORDERED: LIDOCAINE 1% INJ 10MG/ML (20 ML MDV) SQ ONE (09:35)
[2021-09-07] MEDS ORDERED: VERAPAMIL SYRINGE (5 MG/10 ML) INTRAARTER ONE (09:38)
[2021-09-07] MEDS ORDERED: MIDAZOLAM 2 MG/2 ML VIAL IV ONE (09:41)
[2021-09-07] MEDS ORDERED: NITROGLYCERIN 1000MCG/10ML SYRINGE IV ONE (10:01)
[2021-09-07] MEDS ORDERED: IOPAMIDOL-370 125ML BTL INJ ONE (10:07)
[2021-09-07] MEDS ORDERED: ATROPINE SULFATE 0.1 MG/ML 10ML SYRINGE IV PRN (10:22)
[2021-09-07] MEDS ORDERED: RX INFO: IV CONTRAST WAS GIVEN 1 EACH MISC MISCELLANE PRN (10:22)
[2021-09-07] MEDS ORDERED: MAG HYDROX/AL HYDROX/SIMETH 30 ML CUP PO PRN (10:22)
[2021-09-07] MEDS ORDERED: NITROGLYCERIN SL TABS 0.4 MG TAB SUBLINGUAL PRN (10:22)
[2021-09-07] MEDS ORDERED: ZOLPIDEM 5 MG TAB PO PRN (10:22)
[2021-09-07] MEDS ORDERED: SODIUM CHLORIDE 0.9% 1,000 ML IV SCH (10:30)
--- NOTE | 2021-09-07 10:44 | CC ---
CARDIAC CATHETERIZATION REPORT Mr. Beavers is a 56-year-old male with a history of coronary artery disease, status post stenting in January of 2019, history of hypertension, hyperlipidemia and diabetes mellitus who recently has been complaining of episodes of chest discomfort as well as dyspnea on exertion. In view of his prior history and his presentation, recommendation was made regarding cardiac catheterization. The procedure as well as its risks and complications were discussed with the patient, who was in full understanding and agreement. PROCEDURE DESCRIPTION: Patient was brought to the [facility] in a fasting, semi-sedated state after receiving fentanyl and Benadryl and achieving a moderate conscious sedated state. Using Xylocaine anesthesia and Seldinger technique, a 6-[place] sheath was introduced in the right radial artery. Selective right and left angiography was performed using 5-[place] 3.5 bend right and left Lakshmi catheters. Multiple views were taken of the arteries, including hemiaxial views. Following that, a 5-[place] tight pigtail catheter was introduced into the left ventricle and left ventricular end-diastolic pressure was calculated. Following that, catheters were removed. Images were reviewed. Of note, the patient received 5000 units of intravenous heparin as well as intraarterial verapamil. FINDINGS: FLUOROSCOPY: There is calcification involving the LAD as well as the right coronary artery. LEFT MAIN: This is a large-sized vessel bifurcating into left circumflex and left anterior descending artery. Left main coronary artery has no evidence of high- grade stenosis. LEFT ANTERIOR DESCENDING ARTERY: This is a large-sized vessel reaching to the apex with a wrap around the apex segment, tortuous in mid segment. The left anterior descending artery is calcified proximally , the mid segment has 10% to 20% plaque without any evidence of high-grade stenosis. The diagonal branch has no evidence of high- grade stenosis. LEFT CIRCUMFLEX: This is a nondominant vessel giving rise to two obtuse marginal branches. The left circumflex prior to the takeoff of the obtuse marginal branch 1 has a 20% to 30% plaque. The rest of the vessel has no high-grade stenosis. RIGHT CORONARY ARTERY: This is a large dominant vessel bifurcating into PDA and posterolateral segment and branches. The stented segment in the proximal and mid RCA are patent with no significant in-stent restenosis. The distal RCA has a 90% plaque. There is diffuse intimal disease involving the PLV and the PDA, but no high- grade stenosis. LEFT VENTRICULOGRAM: Left ventriculogram was not performed. HEMODYNAMICS: There was no gradient across the aortic valve. The left ventricular end- diastolic pressure was 12 to 16 mmHg. CONCLUSION: 1. Critical stenosis involving the distal RCA. 2. Patent stent in the proximal and mid RCA. 3. Calcified coronary arteries. 4. Mild disease in the LAD and the left circumflex. RECOMMENDATIONS: In view of findings and anatomy, I have recommended proceeding with angioplasty and stenting of the RCA. The procedure as well as its risks and complications were discussed with the patient, who is in full understanding and agreement. MMODL / IJN: [id number] / MTDD
--- NOTE | 2021-09-07 10:49 | PTCA ---
PERCUTANEOUSTRANS CORORONARY ANGIOGRAPHY DATE OF PROCEDURE: 09/07/2021 Mr. Beavers is a 56-year-old male with known history of hypertension, hyperlipidemia and diabetes mellitus who has been complaining of new-onset chest discomfort, underwent cardiac catheterization and was found to have critical stenosis involving the distal RCA. In view of that, recommendation was made regarding angioplasty and stenting. The procedure as well as its risks and the complications were discussed with the patient, who was in full understanding and agreement. PROCEDURE DESCRIPTION: A 6-Estonian FR4 guiding catheter was introduced into the system. After cannulating the right coronary ostium, a 0.014 balanced medium weight J-wire was advanced across the lesion, positioned distally. Then a 2.5 x 12 mm NC Trek balloon was advanced and one inflation at 10 atmospheres was done. Following that, the balloon was removed and a 3.0 x 15 mm Xience Skypoint was advanced, deployed and post-dilated at 16 atmospheres. After the last inflation, after appropriate wait, the balloon and the guidewire were withdrawn back into the guiding catheter. Images were obtained and repeated. Those images revealed stable successful stenting. At that point, the guiding catheter, the balloon and the guidewire were removed. The sheath was removed. Hemostasis was obtained with deployment of a TR band. There was no immediate complication. Patient was returned to his room in stable condition. Of note, the patient received an additional 3000 units of intravenous heparin. His ACT was followed. He had chest discomfort and EKG changes with the inflations that resolved at the end of the procedure. RESULTS: Successful stenting of the distal RCA with reduction of stenosis from 90% to 0%. RECOMMENDATIONS: Patient will be continued on aspirin, Plavix, beta miguel, NORMA inhibitor and statin. The importance of dual antiplatelet treatment was discussed with the patient and his family, and they are in full understanding and agreement. Duration of sedation was 34 minutes. MMODL / IJN: [id number] /
--- NOTE | 2021-09-07 10:49 | LTR ---
September 07, 2021 To: Dr. Curtis Caban Regarding: Joseph Beavers (65) Dear Dr. Caban, I had the pleasure of performing cardiac catheterization and coronary artery angioplasty and stenting on Mr. Beavers at [facility] on September 07. A full copy of the procedure note will be forwarded to you. In brief, he was found to have critical stenosis involving the distal RCA with patent stent in the proximal and mid RCA. Based on those findings, he underwent successful stenting of that segment. I am hopeful that this procedure will stabilize his status. Thank you again for allowing me to participate in this patient's care. Please feel free to call with any questions. Sincerely yours, Kaylie Cueva M.D. DAVID / CATA: [id number] /
[2021-09-07] MEDS ORDERED: hydroCHLOROthiazide 25 MG TAB PO SCH (11:00)
[2021-09-07] MEDS ORDERED: METOPROLOL TARTRATE 25 MG TAB PO SCH (11:00)
[2021-09-07 15:18] VITALS: BP 165/78; PULSE 67
[2021-09-07] MEDS ORDERED: NON FORMULARY DRUG (Insulin Glargine 100 UNIT/ML Vial) SQ SCH (21:00)
[2021-09-08] MEDS ORDERED: NON FORMULARY DRUG (Empagliflozin [Jardiance] 25 MG Tablet) PO SCH (09:00)
[2021-09-08] MEDS ORDERED: CLOPIDOGREL 75 MG TAB PO SCH (09:00)
[2021-09-08] MEDS ORDERED: ATORVASTATIN 40 MG TAB PO SCH (09:00)
[2021-09-08] MEDS ORDERED: ASPIRIN 81 MG PO SCH (09:00)
[2021-09-08] MEDS ORDERED: NON FORMULARY DRUG (Losartan Potassium [Cozaar] 100 MG Tablet) PO SCH (09:00)
== END 2021-09-07 15:10 | disposition home or self-care (01) ==
LOC: CATHCVL 07:20
PROVIDERS: ATTEND Internal Medicine Interventional Cardiology
DX: I25.110 Atherosclerotic heart disease of native coronary artery with unstable angina pectoris (principal); I25.84 Coronary atherosclerosis due to calcified coronary lesion; I10 Essential (primary) hypertension; E78.2 Mixed hyperlipidemia; E11.51 Type 2 diabetes mellitus with diabetic peripheral angiopathy without gangrene; Z20.822 Contact with and (suspected) exposure to COVID-19; E78.00 Pure hypercholesterolemia, unspecified; Z95.5 Presence of coronary angioplasty implant and graft; I25.5 Ischemic cardiomyopathy; Z79.02 Long term (current) use of antithrombotics/antiplatelets; Z79.82 Long term (current) use of aspirin; Z79.84 Long term (current) use of oral hypoglycemic drugs; Z79.4 Long term (current) use of insulin; Z79.899 Other long term (current) drug therapy; Z88.8 Allergy status to other drugs, medicaments and biological substances
CPT/HCPCS: 93458; 85025; 87635; C9600; C1769 ×2; C1887; C1894; C1725; C1874; J2250; J2001; J3010; J1644; Q9967

== ENCOUNTER → 2022-06-15 | Outpatient (CLI) | payer BC ==
--- NOTE | 2022-06-16 04:37 | MR ---
EXAMINATION TYPE: MR shoulder LT wo/w con DATE OF EXAM: 06/15/2022 COMPARISON: None HISTORY: Left shoulder pain and limited movement for a few years CONTRAST: Standard multiplanar, multisequence MRI departmental protocol images were obtained without contrast a nd with 9 mL intravenous Gadavist gadolinium contrast. The subscapularis tendon is intact. The glenoid yoav appear intact. Biceps tendon is intact. There i s increased signal in the supraspinatus tendon near its attachment on the greater tuberosity of the h umerus. There is small subdeltoid effusion. There are small shoulder joint effusion. The AC joint is intact. No significant subacromial impingement. The infraspinatus tendon is intact. No fracture seen. No evidence of focal bone destruction. IMPRESSION: There is full-thickness tear of the supraspinatus tendon at the anterior greater tuberosity of the hu merus. No retraction. Small shoulder joint effusion and subdeltoid effusion.
== END | disposition home or self-care (01) ==
LOC: RADMRIMAIN 17:34
PROVIDERS: ATTEND Family Medicine
DX: M75.112 Incomplete rotator cuff tear or rupture of left shoulder, not specified as traumatic (principal); M25.412 Effusion, left shoulder
CPT/HCPCS: 73223; A9585

== ENCOUNTER → 2023-03-01 | Outpatient (CLI) | payer MEDICARE ==
[2023-03-01 16:05] LABS: African American GFR (CKD) 85.9 (60.0-200.0); Albumin 4.7 g/dL (3.8-4.9); Albumin/Globulin Ratio 1.88 (1.60-3.17); BUN/Creat Ratio 19.55 Ratio (12.00-20.00); Blood Urea Nitrogen 21.5 mg/dL (9.0-27.0); Calcium 10.4 mg/dL (8.7-10.3); Globulin 2.5 g/dL (1.6-3.3); Non-African American GFR(CKD) 74.1 (60.0-200.0); Potassium 3.8 mmol/L (3.5-5.5); Total Bilirubin 0.6 mg/dL (0.30-1.20); Total Protein 7.2 g/dL (6.2-8.2)
[2023-03-01 16:35] LABS: Basophils # (A) 0.08 X 10*3/uL (0.00-0.10); Basophils % (A) 0.6 %; Eosinophils # (A) 0.14 X 10*3/uL (0.04-0.35); HCT 49.6 % (39.6-50.0); HGB 16.3 g/dL (13.0-17.0); Immature Grans, Automated 0.7 %; Lymphocytes # (A) 1.55 X 10*3/uL (0.90-5.00); Lymphocytes % (A) 11.4 %; MCH 29.7 pg (27.0-32.0); MCHC 32.9 g/dL (32.0-37.0); MCV 90.3 fL (80.0-97.0); Mean Platelet Volume 13.6 fL (9.5-12.2); Monocytes % (A) 5.9 %; NRBC Per 100 WBC 0 /100 WBCS (0.0-0.0); Neutrophils # (A) 10.98 X 10*3/uL (1.80-7.70); Neutrophils % (A) 80.4 %; Platelet Count 241 X 10*3/uL (140-440); RBC 5.49 X 10*6/uL (4.40-5.60); RDW 13.2 % (11.5-14.5); WBC 13.64 X 10*3/uL (4.50-10.00)
[2023-03-01 18:07] LABS: HIV 2 AB Non-Reactive (Non-Reactive); HIV AB P24 Non-Reactive (Non-Reactive); HIV P24 AG Non-Reactive (Non-Reactive)
== END | disposition home or self-care (01) ==
LOC: LABPAT 09:20
PROVIDERS: ATTEND Orthopaedic Surgery
DX: Z01.812 Encounter for preprocedural laboratory examination (principal); M75.42 Impingement syndrome of left shoulder
CPT/HCPCS: 36415; 80053; 83036; 84153; 85025; 87390

== ENCOUNTER → 2023-03-01 | Outpatient (CLI) | payer MEDICARE | END | disposition home or self-care (01) | LOC: LABWHC1 09:17 | PROVIDERS: ATTEND Family Medicine | DX: Z53.9 Procedure and treatment not carried out, unspecified reason (principal) ==

== ENCOUNTER 2023-03-22 05:35 | Day surgery (SDC) | payer BC, MEDICARE ==
--- NOTE | 2023-03-21 15:41 | HP ---
HISTORY AND PHYSICAL DATE OF SURGERY: 03/22/2023. HISTORY OF PRESENT ILLNESS: Joseph Beavers is a 57-year-old gentleman who was seen with progressive left shoulder pain. We discussed options for treatment. He elected to proceed with left shoulder arthroscopy. Consent regarding the procedure was obtained. Cardiac clearance was provided by Dr. Cueva. PAST MEDICAL HISTORY: Cardiovascular disease, hypertension, hyperlipidemia, insulin-dependent diabetes. PAST SURGICAL HISTORY: Cardiac catheterization with stent insertion. DAILY MEDICATIONS: Aspirin, atorvastatin, Humalog insulin, Jardiance, Lantus insulin, losartan, metformin, metoprolol. ALLERGIES: Dyes. SOCIAL HISTORY: He denies tobacco use. PHYSICAL EVALUATION OF LEFT SHOULDER: Flexion is 100 degrees, abduction is 100 degrees, external rotation is 40 degrees with some pain and weakness. Tenderness along the anterolateral acromion and rotator cuff insertion. Impingement is positive at 90 degrees. Cross-body adduction sign is positive. Drop-arm sign is positive. Distal neurovascular exam is intact. IMAGING STUDIES: Left shoulder radiographs revealed a type 2 acromion along with moderate acromioclavicular joint osteoarthritis. MRI of left shoulder revealed rotator cuff tendon tear. IMPRESSION: 1. Left shoulder impingement with rotator cuff tear. 2. Left shoulder acromioclavicular joint osteoarthritis. 3. Cardiovascular disease. 4. Insulin-dependent diabetes. 5. Hypertension. 6. Hyperlipidemia. PLAN: Left shoulder arthroscopy with subacromial decompression, arthroscopic rotator cuff repair, possible Virgen procedure and debridement. MMODL / IJN: [id number] /
[2023-03-22] MEDS ORDERED: DEXAMETHASONE SOD PHOSPHATE 4 MG/ML 1 ML VIAL IV ONE (06:12)
[2023-03-22] MEDS ORDERED: ONDANSETRON 4 MG/2 ML VIAL IVP ONE (06:12)
[2023-03-22] MEDS: LACTATED RINGERS 1,000 ML IV SCH ×3 (06:18→09:56)
[2023-03-22 06:39] LABS: Glucose,Whole Blood 148 mg/dL (70-110)
[2023-03-22] MEDS ORDERED: MIDAZOLAM 2 MG/2 ML VIAL IVP ONE (06:47)
[2023-03-22] MEDS ORDERED: LIDOCAINE 2% INJ 20 MG/ML (2 ML VIAL) ONE (07:25)
[2023-03-22] MEDS ORDERED: DEXAMETHASONE SOD PHOSPHATE 4 MG/ML 1 ML VIAL ONE (07:25)
[2023-03-22] MEDS ORDERED: ROPIVACAINE 5 MG/ML 30 ML VIAL ONE (07:25)
[2023-03-22] MEDS ORDERED: fentaNYL (PF) 50 MCG/ML 2 ML AMP ONE (07:25)
[2023-03-22] MEDS ORDERED: PHENYLEPHRINE-0.9% NACL SYG 1,000 MCG/10 ML SYRINGE ONE (07:25)
[2023-03-22] MEDS ORDERED: SUCCINYLCHOLINE CHLORIDE 200 MG/10 ML VIAL IV ONE (07:25)
[2023-03-22] MEDS ORDERED: PROPOFOL 10 MG/ML 20 ML VIAL IV ONE (07:25)
[2023-03-22 09:11] VITALS: TEMP 97.1
--- NOTE | 2023-03-22 09:16 | P.OP ---
Date of Procedure: 03/22/23 Preoperative Diagnosis: Left shoulder impingement Postoperative Diagnosis: 1. Left shoulder rotator cuff tear 2. Left shoulder impingement 3. Left shoulder acromioclavicular joint osteoarthritis 4. Left shoulder partial long head biceps tendon tear 5. Left shoulder superficial labral tear Procedure(s) Performed: 1. Left shoulder arthroscopic rotator cuff repair 2. Left shoulder arthroscopic subacromial compression 3. Left shoulder arthroscopic Virgen procedure 4. Left shoulder arthroscopic biceps tenodesis 5. Left shoulder arthroscopic debridement labral tear Implants: 4Arthrex 4.75 swivel lock anchors Anesthesia: GETA, regional (Interscalene block) Surgeon: Edmund Galicia Medical Office Assistant #1: Amadeo Vega Estimated Blood Loss (ml): 11 Pathology: none sent Condition: stable Disposition: PACU Indications for Procedure: 57-year-old patient was seen with progressive left shoulder pain. After having treatment options discussed, he elected to proceed with arthroscopy. Operative Findings: See description of procedure Description of Procedure: Patient underwent an interscalene block by department of anesthesia. The patient was then taken to the operative suite. The patient underwent a general anesthetic by the department of anesthesia. The patient was placed into a lateral position and secured. There was appropriate padding of the bony prominence. Left shoulder was then prepped and draped in normal sterile orthopedic fashion. We placed the extremity in 10 pounds of longitudinal traction. A posterior incision was now made for a posterior working portal site. The trocar and cannula were inserted into the glenohumeral joint. Arthroscopy was initiated. Spinal needle was now inserted anteriorly, to ascertain the anterior working portal site. An incision was now made in that area, a trocar was inserted followed by a probe. There was some superficial tearing of the superior labrum. There was hyperemia and partial tearing long head biceps tendon. There were grade 1 chondromalacia changes along the anterior aspect of the glenoid fossa. The remaining labrum appeared stable. I debrided out the superficial labral tears getting down to stable labral tissue. I decided to proceed with arthroscopic biceps tenodesis. I introduced a cannula through my anterior portal site. I now performed a loop intact suture to the mid area of the biceps tendon. I now released the biceps tendon off of the superior labrum anchor area. With the assistance of Jeramie POPE punch hole at the interval between the supraspinatus and subscapularis tendon. Our suture was now passed through the eyelet of an Arthrex 4.75 swivel lock anchor. I placed into the pre-punch hole and held in position while Jeramie POPE tensioned suture and deployed the anchor was good fixation noted. Residual suture limb was clipped. We noted good fixation of our biceps tendon. Instruments were now removed from the glenohumeral joint. Utilizing the posterior working portal site, the trocar and cannula were inserted into the subacromial space. Arthroscopy initiated. I made an incision 2 fingerbreadths lateral to the acromion. I introduced my trocar followed by my ArthroCare ablator. I now began ablating thick subacromial bursal tissue, which exposed the undersurface of the anterior acromion. There was diminished subacromial space. There was a very prominent anterior acromion. A motorized bur was introduced and a subacromial decompression was performed. I also excised some osteophytes off the inferior aspect of the distal clavicle. The AC joint was visualized and noted to be fairly arthritic. The motorized bur was introduced in the anterior portal site and a Virgen procedure was performed without difficulty, decompressing the AC joint nicely. I turned my attention to the rotator cuff. There was a 2 cm rotator cuff tendon tear. I debrided the margins getting down to stable tendon tissue. I abraded the footprint with a motorized bur. I made an speeder tender portal site off the lateral acromion. I punched hole centrally for insertional medial row anchor. I inserted a Arthrex 4.75 anchor for medial row fixation with 3 sutures. I now passed all 6 limbs of suture through good bites of rotator cuff tendon. I passed an additional suture posteriorly. I now punched 2 holes for lateral row fixation again I held the punch and camera while Jeramie POPE used a mallet to tap in the punch. We now passed sutures through both anchors and individually I introduced the anchors into the pre-punch holes I held the anchor guide in position with one hand holding the camera with the other hand while Jeramie POPE tensioned the sutures and screwed in the anchors one at a time. All residual suture limbs were now clipped. We had good compression of the tendon along the entire footprint. Instruments now removed from the portal sites. All portal sites were approximated with nylon suture. Sterile dressings were applied followed by a shoulder immobilizer. Amadeo POPE assisted in this complex case. The patient was awakened, transferred to a bed, and taken to recovery in stable condition.
[2023-03-22 09:22] VITALS: RESP 16
[2023-03-22] MEDS: HYDROmorphone 0.5 MG/0.5 ML SYRINGE IVP PRN ×2 (09:25→09:37)
[2023-03-22 09:35] LABS: Glucose,Whole Blood 184 mg/dL (70-110)
[2023-03-22 10:00] VITALS: BP 125/76; PULSE 64
[2023-03-22] MEDS ORDERED: HYDROcodone/APAP 7.5-325MG 1 EACH TAB ONE (10:08)
[2023-03-22] MEDS ORDERED: HYDROcodone/APAP 7.5-325MG 1 EACH TAB PO ONE (10:10)
--- NOTE | 2023-03-22 13:21 | P.ANPRN ---
Procedure Note - Anesthesia - Nerve Block Performed Left Interscalene Single Time Out Performed: Yes Date of Procedure: 03/22/23 Procedure Start Time: 06:46 Procedure Stop Time: 06:49 Location of Patient: PreOp Indication: Acute Post-Operative Pain, Requested by Surgeon Sedation Type: Sedate with meaningful contact maintained Preparation: Sterile Prep Position: Supine Needle Types: Pajunk Needle Gauge: 21 Ultrasound used to visualize needle placement: Yes Ultrasound used to observe medication spread: Yes Blood Aspirated: No Pain Paresthesia on Injection Noted: No Resistance on Injection: Normal Image Stored and Saved: Yes Events: Uneventful and Well Tolerated (ropi .5% 20cc plus dexamethasone 4mg)
== END 2023-03-22 11:10 | disposition home or self-care (01) ==
LOC: OR 05:35
PROVIDERS: ATTEND Orthopaedic Surgery
DX: S46.012A Strain of muscle(s) and tendon(s) of the rotator cuff of left shoulder, initial encounter (principal); S46.112A Strain of muscle, fascia and tendon of long head of biceps, left arm, initial encounter; M19.012 Primary osteoarthritis, left shoulder; S43.432A Superior glenoid labrum lesion of left shoulder, initial encounter; M75.42 Impingement syndrome of left shoulder; M94.212 Chondromalacia, left shoulder; G89.18 Other acute postprocedural pain; I25.10 Atherosclerotic heart disease of native coronary artery without angina pectoris; I10 Essential (primary) hypertension; E78.5 Hyperlipidemia, unspecified; E11.9 Type 2 diabetes mellitus without complications; N28.9 Disorder of kidney and ureter, unspecified; Z79.4 Long term (current) use of insulin; Z79.84 Long term (current) use of oral hypoglycemic drugs; Z79.899 Other long term (current) drug therapy; Z79.82 Long term (current) use of aspirin; Z91.041 Radiographic dye allergy status; X58.XXXA Exposure to other specified factors, initial encounter; Z95.5 Presence of coronary angioplasty implant and graft; Z86.718 Personal history of other venous thrombosis and embolism; Z85.038 Personal history of other malignant neoplasm of large intestine; Z88.8 Allergy status to other drugs, medicaments and biological substances
CPT/HCPCS: 29827; 29828; 29824; 29826; 64415; C1713 ×4; J2250; J0330; J1100; J0690; J2405; J3010; J2795; J2370; J2704; J1170; J2001

== ENCOUNTER 2023-06-22 07:47 | Emergency (ER) | payer MEDICARE ==
[2023-06-22 07:53] VITALS: BP 155/92; PULSE 98; RESP 16; TEMP 97.9
--- NOTE | 2023-06-22 08:20 | ED ---
Skin/Abscess/FB HPI - General Chief complaint: Skin/Abscess/Foreign Body Stated complaint: Spider Bite Time Seen by Provider: 06/22/23 07:53 Source: patient, RN notes reviewed Mode of arrival: ambulatory Limitations: no limitations - History of Present Illness Initial comments: This is a 57-year-old male who presents to the emergency department for pain and a rash to the left side of the neck. States that about a week ago, he started to notice pain to this region and shortly after developed a red bump. Over the last couple of days, he has noticed a bunch of red vesicular lesions over the left side of the head and neck. States that these are burning and very painful. Denies any history of similar symptoms in the past. He did have chickenpox w hen he was younger. He has also started to develop pain in the left ear. Denies any fevers or chills. He has not noticed any drainage from the ear. States that he is concerned about a spider bite. Denies any fevers, chills, sore throat, cough, dyspnea, chest pain, palpitations, abdominal pain, nausea, vomiting, diarrhea, or back pain. MD complaint: rash - Related Data Home Medications Medication Instructions Recorded Confirmed Cholecalciferol [Vitamin D3 (25 2,000 unit PO DAILY 05/26/15 03/22/23 Mcg = 1000 Iu)] Insulin Glargine [Lantus Vial] 60 unit SQ HS 05/26/15 03/22/23 Atorvastatin [Lipitor] 80 mg PO QAM 02/08/19 03/22/23 Fish Oil/Dha/Epa [Fish Oil 1,200 1,200 mg PO DAILY 02/08/19 03/22/23 mg Fish Oil] Losartan Potassium [Cozaar] 100 mg PO QAM 02/08/19 03/22/23 Aspirin EC [Ecotrin Low Dose] 81 mg PO HS 06/04/20 03/22/23 Empagliflozin [Jardiance] 25 mg PO QAM 06/04/20 03/22/23 INSULIN LISPRO (humaLOG) [humaLOG] 0 units SQ ACHS PRN 06/04/20 03/22/23 metFORMIN HCL [Glucophage] 1,000 mg PO QAM 06/04/20 03/22/23 Meloxicam 7.5 mg PO QAM 09/06/21 03/22/23 hydroCHLOROthiazide 25 mg PO QAM 09/06/21 03/22/23 Meloxicam 5 mg PO HS 03/17/23 03/22/23 Previous Rx's Medication Instructions Recorded Metoprolol Tartrate [Lopressor] 25 mg PO BID #60 tab 02/13/19 HYDROcodone/APAP 7.5-325MG [[place] 1 each PO Q6HR PRN #21 tab 03/22/23 7.5] Acyclovir [Zovirax] 800 mg PO 5XD 7 Days #35 tab 06/22/23 Ciprofloxacin-Hc Otic Susp [Cipro 3 drops LEFT EAR BID 7 Days #10 ml 06/22/23 Hc Otic Suspension] Diclofenac Sodium [Voltaren] 75 mg PO BID PRN #30 tab 06/22/23 HYDROcodone/APAP 7.5-325MG [[place] 1 tab PO Q6HR PRN 3 Days #12 tab 06/22/23 7.5-325] Allergies Allergy/AdvReac Type Severity Reaction Status Date / Time perfume Allergy Swelling, Verified 06/22/23 07:49 RASH rivaroxaban [From Xarelto] AdvReac GI BLEEDING Verified 06/22/23 07:49 DYES Allergy Swelling, Uncoded 06/22/23 07:49 RASH SCENTS AdvReac RASH, Uncoded 06/22/23 07:49 SWELLING Review of Systems ROS Statement: Those systems with pertinent positive or pertinent negative responses have been documented in the HPI. ROS Other: All systems not noted in ROS Statement are negative. Past Medical History Past Medical History: Cancer, Diabetes Mellitus, Deep Vein Thrombosis (DVT), GI Bleed, Hyperlipidemia, Hypertension, Osteoarthritis (OA) Additional Past Medical History / Comment(s): 06/10/15 ADM W/ Rectal Bleeding, 12 days Post Polypectomy. HX RECTAL CA W/ ILEOSTOMY, THEN REVERSAL 05/2014. SEVERE JOSE LEG DVT 02/2014. . HX KIDNEY STONES, RT URETER, bowel incontinence at times due to bowel surgeries. History of Any Multi-Drug Resistant Organisms: None Reported Past Surgical History: Bowel Resection, Heart Catheterization With Stent, Hernia Repair, Orthopedic Surgery Additional Past Surgical History / Comment(s): PLATE IN RIGHT GREAT TOE. ILEOSTOMY 12/2013/REVERSED 05/2014. Thrombectomy W/ Clot EXC JOSE LEGS 02/2014; KIDNEY STONE SX. 1/2 RT GREAT TOE AMPUTATED 05/2014. EGD, COLONSCOPY, POLYPECTOMY 05/29/15,INCISIONAL HERNIA REPAIR Past Anesthesia/Blood Transfusion Reactions: No Reported Reaction Additional Past Anesthesia/Blood Transfusion Reaction / Comment(s): STATES REACTION TO PRE-OP SCRUB SOAP scented USED AT OTHER HOSPITAL, NO REACTION SINCE, pt thinks he had BLOOD TRANSFUSION with GI bleed no issues. pt is claustrophobic. Date of Last Stent Placement:: 2020 Past Psychological History: No Psychological Hx Reported Smoking Status: Former smoker - Past Family History Mother Family Medical History: Cancer Sister(s) Family Medical History: Cancer Additional Family Medical History / Comment(s): rectal General Exam Limitations: no limitations General appearance: alert, in no apparent distress Head exam: Present: atraumatic, normocephalic, normal inspection ENT exam: Present: other (Erythema to the left ear canal. No TM erythema.) Respiratory exam: Present: normal lung sounds bilaterally. Absent: respiratory distress, wheezes, rales, rhonchi, stridor Cardiovascular Exam: Present: regular rate, normal rhythm, normal heart sounds. Absent: systolic murmur, diastolic murmur, rubs, gallop, clicks Neurological exam: Present: alert, oriented X3, CN II-XII intact Psychiatric exam: Present: normal affect, normal mood Skin exam: Present: other (Erythematous grouped vesicular lesions to the left side of the head and neck following C2 dermatome distribution) Course Vital Signs 06/22/23 07:50 Temperature 97.9 F Pulse Rate 98 Respiratory 16 Rate Blood Pressure 155/92 O2 Sat by Pulse 96 Oximetry Medical Decision Making - Medical Decision Making This is a 57-year-old male who presents to the emergency department for a rash to the left side of the neck. Was pt. sent in by a medical professional or institution? @ -No Did you speak to anyone other than the patient for history? @ -No Did you review nursing and triage notes? @ -Yes, and I agree, it is accurate with regards to the patient's symptoms. Were old charts reviewed? @ -No Differential Diagnosis? @ -Differential Rash: Roseola, measles, Lyme disease, erythema multiforme, cellulitis, toxic shock syndrome, Shahab Sebastien syndrome, Kawasaki disease, adan mountain spotted fever, contact dermatitis, allergic dermatitis, measles, mumps, rubella, varicella, meningococcal disease, drug reaction, coxsackievirus, This is not meant to be an all-inclusive list. EKG interpreted by me (3pts min.)? @ -Not obtained X-rays interpreted by me (1pt min.)? @ -Not obtained CT interpreted by me (1pt min.)? @ -Not obtained U/S interpreted by me (1pt. min.)? @ -Not obtained What testing was considered but not performed? (CT, X-rays, U/S, labs)? Why? @ -None What meds were considered but not given? Why? @ -None Did you discuss the management of the patient with other professionals? @ -No Did you reconcile home meds? @ -No Was smoking cessation discussed for >3mins.? @ -No Was critical care preformed (if so, how long)? @ -No Were there social determinants of health that impacted care today? How? (Homelessness, low income, unemployed, alcoholism, drug addiction, transportation, low edu. Level, literacy, decrease access to med. care, [place] [facility], rehab)? @ -No Was there de-escalation of care discussed even if they declined? (Discuss DNR or withdrawal of care, Hospice)? @ -No What co-morbidities impacted this encounter? (DM, HTN, Smoking, COPD, CAD, Cancer, CVA, Hep., AIDS, mental health diagnosis, sleep apnea, morbid obesity)? @ -None Was patient admitted / discharged? @ -Discharged. Physical examination is consistent with herpes zoster following the left C2 dermatome distribution. The ear pain is likely related to the shingles, however he does also have erythema in the auditory canal and we will plan to treat the patient for an otitis externa as well. Prescription for acyclovir and Cipro Hc drops provided with dosing instructions reviewed. He was also given prescriptions for diclofenac and [place] for pain relief. He is advised to take the [place] sparingly when the pain is the most severe and avoid driving or operating machinery when taking this. Undiagnosed new problem with uncertain prognosis? @ -None Drug Therapy requiring intensive monitoring for toxicity (Heparin, Nitro, Insulin, Cardizem)? @ -None Were any procedures done? @ -None Diagnosis/symptom? @ -Herpes zoster, otitis externa Acute, or Chronic, or Acute on Chronic? @ -Acute Uncomplicated (without systemic symptoms) or Complicated (systemic symptoms)? @ -Uncomplicated Side effects of treatment? @ -None Exacerbation, Progression, or Severe Exacerbation] @ -Not applicable Poses a threat to life or bodily function? @ -No Return precautions reviewed in depth, the patient is instructed to return to the emergency department with any new, worsening, or concerning symptoms. Patient verbalized understanding. This case was discussed in detail with the attending ED physician, Dr. Monique. Presentation, findings, and treatment plan discussed in detail as well. Disposition Clinical Impression: Herpes zoster, Otitis externa, left Disposition: HOME SELF-CARE Instructions (If sedation given, give patient instructions): Shingles (ED), Swimmer's Ear (ED) Additional Instructions: Return to the emergency department with any new, worsening, or concerning symptoms. You will take the acyclovir 5 times daily for 7 days. Take the diclofenac twice daily as needed for pain relief. Do not take this with any other anti-inflammatories such as ibuprofen, take one or the other. You may take it with Tylenol. Take the [place] sparingly when your pain is the most severe and be aware that it may make you drowsy. You will use the eardrops as 4 drops to the left ear twice daily for 7 days. The shingles will be contagious if the vesicles break open and leak. Follow up with your primary care provider in 1-2 days. Prescriptions: Ciprofloxacin-Hc Otic Susp [Cipro Hc Otic Suspension] 3 drops LEFT EAR BID 7 Days #10 ml HYDROcodone/APAP 7.5-325MG [[place] 7.5-325] 1 tab PO Q6HR PRN 3 Days #12 tab PRN Reason: Pain Diclofenac Sodium [Voltaren] 75 mg PO BID PRN #30 tab PRN Reason: Pain Acyclovir [Zovirax] 800 mg PO 5XD 7 Days #35 tab Is patient prescribed a controlled substance at d/c from ED?: Yes When asked, does pt state using other controlled substances?: No If prescribed controlled substance>3 days was MAPS reviewed?: Prescribed <3 Days Referrals: Curtis Caban MD [Primary Care Provider] - 1-2 days
== END 2023-06-22 08:49 | disposition home or self-care (01) ==
LOC: EC 07:47
DX: B02.9 Zoster without complications (principal); H60.92 Unspecified otitis externa, left ear; E11.9 Type 2 diabetes mellitus without complications; E78.5 Hyperlipidemia, unspecified; I10 Essential (primary) hypertension; M19.90 Unspecified osteoarthritis, unspecified site; Z86.718 Personal history of other venous thrombosis and embolism; Z87.891 Personal history of nicotine dependence; Z88.8 Allergy status to other drugs, medicaments and biological substances; Z79.82 Long term (current) use of aspirin; Z79.84 Long term (current) use of oral hypoglycemic drugs; Z79.4 Long term (current) use of insulin; Z79.899 Other long term (current) drug therapy; W57.XXXA Bitten or stung by nonvenomous insect and other nonvenomous arthropods, initial encounter
CPT/HCPCS: 99283

== ENCOUNTER → 2023-08-17 | Outpatient (CLI) | payer MEDICARE ==
[2023-08-17 11:00] LABS: Basophils # (A) 0.09 X 10*3/uL (0.00-0.10); Basophils % (A) 0.7 %; Eosinophils % (A) 3.3 %; HCT 43.7 % (39.6-50.0); HGB 14.3 d/dL (13.0-17.0); Lymphocytes # (A) 1.71 X 10*3/uL (0.90-5.00); MCH 29.4 pg (27.0-32.0); MCHC 32.7 d/dL (32.0-37.0); MCV 89.9 FL (80.0-97.0); Mean Platelet Volume 12.8 FL (9.5-12.2); Monocytes # (A) 0.97 X 10*3/uL (0.20-1.00); Monocytes % (A) 7.9 %; NRBC Per 100 WBC 0 X 10*3/uL (0.00-0.01); Neutrophils % (A) 73.4 %; Platelet Count 227 X 10*3/uL (140-440); RBC 4.86 X 10*6/uL (4.40-5.60); RDW 14.4 % (11.5-14.5); WBC 12.25 X 10*3/uL (4.50-10.00)
[2023-08-17 11:18] LABS: ALT 30 U/L (10-49); AST 19 U/L (14-35); Albumin 4.3 d/dL (3.8-4.9); Albumin/Globulin Ratio 1.79 Ratio (1.60-3.17); Alkaline Phosphatase 117 U/L (41-126); BUN/Creat Ratio 23.09 Ratio (12.00-20.00); Blood Urea Nitrogen 25.4 mg/dL (9.0-27.0); Carbon Dioxide 28.5 mmol/L (21.6-31.8); Chloride 100 mmol/L (96-109); Chol/HDL Ratio 4.91 Ratio; Globulin 2.4 d/dL (1.6-3.3); Glucose 137 mg/dL (70-110); LDL Cholesterol,Calculated 63.2 mg/dL (0.0-131.0); Potassium 4.1 mmol/L (3.5-5.5); Sodium 141 mmol/L (135-145); Total Bilirubin 0.8 mg/dL (0.3-1.2); Total Protein 6.7 d/dL (6.2-8.2)
== END | disposition home or self-care (01) ==
LOC: LABWHC1 07:20
PROVIDERS: ATTEND Family Medicine
DX: E11.69 Type 2 diabetes mellitus with other specified complication (principal); E78.2 Mixed hyperlipidemia
CPT/HCPCS: 36415; 80053; 80061; 83036; 85025

== ENCOUNTER → 2024-02-12 | Outpatient (CLI) | payer MEDICARE ==
[2024-02-12 11:23] LABS: Basophils # (A) 0.06 X 10*3/uL (0.00-0.10); Basophils % (A) 0.5 %; Eosinophils # (A) 0.33 X 10*3/uL (0.04-0.35); Eosinophils % (A) 2.9 %; HCT 50.9 % (39.6-50.0); HGB 16.3 g/dL (13.0-17.0); Lymphocytes % (A) 15.9 %; MCV 90.6 FL (80.0-97.0); Mean Platelet Volume 13.2 FL (9.5-12.2); Monocytes % (A) 8.8 %; NRBC Per 100 WBC 0 X 10*3/uL (0.00-0.01); Neutrophils # (A) 8.09 X 10*3/uL (1.80-7.70); Neutrophils % (A) 71.5 %; Platelet Count 257 X 10*3/uL (140-440); RBC 5.62 X 10*6/uL (4.40-5.60); RDW 13.4 % (11.5-14.5); WBC 11.32 X 10*3/uL (4.50-10.00)
[2024-02-12 11:43] LABS: ALT 20 U/L (10-49); AST 17 U/L (14-35); Albumin 4.4 g/dL (3.8-4.9); Albumin/Globulin Ratio 1.76 Ratio (1.60-3.17); Alkaline Phosphatase 111 U/L (41-126); BUN/Creat Ratio 23.42 Ratio (12.00-20.00); Blood Urea Nitrogen 28.1 mg/dL (9.0-27.0); Carbon Dioxide 28.2 mmol/L (21.6-31.8); Chloride 100 mmol/L (96-109); Chol/HDL Ratio 4.98 Ratio; Globulin 2.5 g/dL (1.6-3.3); Glucose 140 mg/dL (70-110); LDL Cholesterol,Calculated 73.7 mg/dL (0.0-131.0); Potassium 4.3 mmol/L (3.5-5.5); Sodium 143 mmol/L (135-145); Total Protein 6.9 g/dL (6.2-8.2)
== END | disposition home or self-care (01) ==
LOC: LABWHC1 07:17
PROVIDERS: ATTEND Family Medicine
DX: I10 Essential (primary) hypertension (principal); E78.2 Mixed hyperlipidemia; E11.69 Type 2 diabetes mellitus with other specified complication
CPT/HCPCS: 36415; 80053; 80061; 83036; 84443; 85025

== ENCOUNTER → 2024-08-20 | Outpatient (CLI) | payer MEDICARE ==
[2024-08-20 17:46] LABS: ALT 20 U/L (10-49); AST 22 U/L (14-35)
== END | disposition home or self-care (01) ==
LOC: LABWHC1 07:47
PROVIDERS: ATTEND Internal Medicine Interventional Cardiology
DX: E78.2 Mixed hyperlipidemia (principal)
CPT/HCPCS: 36415; 80061; 84450; 84460

== ENCOUNTER → 2025-02-27 | Outpatient (CLI) | payer MEDICARE ==
[2025-02-27 15:52] LABS: ALT 24 U/L (10-49); AST 22 U/L (14-35); Albumin 4.2 g/dL (3.8-4.9); Albumin/Globulin Ratio 1.91 Ratio (1.60-3.17); Alkaline Phosphatase 104 U/L (41-126); BUN/Creat Ratio 21.67 Ratio (12.00-20.00); Blood Urea Nitrogen 19.5 mg/dL (9.0-27.0); Calcium 9.3 mg/dL (8.7-10.3); Carbon Dioxide 24.2 mmol/L (21.6-31.8); Chloride 104 mmol/L (96-109); Chol/HDL Ratio 3.63 Ratio; Globulin 2.2 g/dL (1.6-3.3); Glucose 129 mg/dL (70-110); LDL Cholesterol,Calculated 43.6 mg/dL (0.0-131.0); Potassium 3.9 mmol/L (3.5-5.5); Sodium 142 mmol/L (135-145); Total Bilirubin 0.8 mg/dL (0.3-1.2); Total Protein 6.4 g/dL (6.2-8.2)
== END | disposition home or self-care (01) ==
LOC: LABWHC1 07:04
PROVIDERS: ATTEND Internal Medicine Interventional Cardiology
DX: I10 Essential (primary) hypertension (principal); E78.2 Mixed hyperlipidemia
CPT/HCPCS: 36415; 80053; 80061